=== PATIENT | male | born 1980 | race Hispanic/Latino ===

== ENCOUNTER 2016-09-21 08:22 | Emergency (ER) | payer MEDICAID ==
--- NOTE | 2016-09-21 09:14 | C.PDOC ---
History Of Present Illness 36 y/o male pmhx adjustment disorder, hypothyroid presents to the ED with complains of feeling weak. Pt recent admitted at another facility for myxedema coma and bradycardia (HR 30). [email or web address] and states he hasn't been able to take thyroid medication x2 days. Pt requesting refill for thyroid medication and gabapentin. Denies fever, chills, pain or any other complaints. Time Seen by Provider: 09/21/16 09:00 Chief Complaint (Nursing): Medical Clearance History Per: Patient History/Exam Limitations: no limitations Onset/Duration Of Symptoms: Days Current Symptoms Are (Timing): Still Present Severity: Mild Reports Recently: Hospitalized Recent travel outside of the [place]: No Past Medical History Reviewed: Historical Data, Nursing Documentation, Vital Signs Vital Signs: Last Vital Signs Temp 98 F 09/21/16 09:39 Pulse 56 L 09/21/16 09:39 Resp 18 09/21/16 09:39 BP 116/69 09/21/16 09:39 Pulse Ox 99 09/21/16 11:02 - Medical History PMH: Anxiety, Fractures (SHOULDER AND KNEE), Hypothyroidism Family History: States: Unknown Family Hx - Social History Hx Alcohol Use: No Hx Substance Use: No - Immunization History Hx Influenza Vaccination: No Review Of Systems Except As Marked, All Systems Reviewed And Found Negative. Constitutional: Positive for: Weakness. Negative for: Fever, Chills Physical Exam - Physical Exam Appears: Non-toxic, No Acute Distress Skin: Warm, Dry, No Rash Head: Atraumatic, Normacephalic Neck: Normal, Normal ROM, Supple Chest: Symmetrical Cardiovascular: Rhythm Regular, No Murmur Respiratory: Normal Breath Sounds, No Rales, No Rhonchi, No Wheezing Gastrointestinal/Abdominal: Soft, No Tenderness Extremity: Normal ROM Extremity: Bilateral: Atraumatic Neurological/Psych: Oriented x3, Normal Speech, Normal Cognition, Normal Motor, Normal Sensation ED Course And Treatment O2 Sat by Pulse Oximetry: 99 (room air) Pulse Ox Interpretation: Normal Medical Decision Making Medical Decision Making: pt hr 55, papper work shows d/c hr 51 from other facility as pt has paperwork bedside. not hypothermic, pt mildly bradycardic. awake alert in nad, normotheric , no clinical concern for myexdema. pt declines blood work, advise outpt f/u. pt advised extensively of risk of myedema if non compliant with meds. given outpt f/up. return precautions advised. Disposition - Disposition Referrals: [facility] [Outside] [facility] [Outside] Mira Parnell MD [Medical Doctor] - Disposition: HOME/ ROUTINE Disposition Time: 09:20 Condition: STABLE Additional Instructions: please follow up in clinic. return to er with worsening symptoms or concerns. Prescriptions: Gabapentin [Neurontin] 600 mg PO QID #20 cap Levothyroxine [Levoxyl] 0.175 mg PO DAILY #20 tab Instructions: Hypothyroidism (ED), Weakness (ED) - Clinical Impression Clinical Impression: Medication refill, Hypothyroid, Weakness - Scribe Statement The provider has reviewed the documentation as recorded by the Gavi Mendoza Provider Attestation: All medical record entries made by the Gavi were at my direction and personally dictated by me. I have reviewed the chart and agree that the record accurately reflects my personal performance of the history, physical exam, medical decision making, and the department course for this patient. I have also personally directed, reviewed, and agree with the discharge instructions and disposition.
[2016-09-21 09:40] VITALS: BP 116/69; PULSE 56; RESP 18; TEMP 98
[2016-09-21 11:01] VITALS: O2SAT 99
== END 2016-09-21 09:40 | disposition home or self-care (01) ==
LOC: C.ER 08:22
DX: E03.9 Hypothyroidism, unspecified (principal); R53.1 Weakness; Z76.0 Encounter for issue of repeat prescription